=== PATIENT | female | born 1980 ===

== ENCOUNTER 2021-04-16 11:22 | Inpatient (IN) | payer OTHER ==
--- NOTE | 2021-04-16 11:05 | History and Physical Report ---
History of Present Illness Date of examination: 04/16/21 Chief complaint: Dysfunctional Uterine Bleeding with Severe Anemia History of present illness: Dysfunctional uterine bleeding refractory to medical management requiring urgent hysterectomy. Severe anemia despite transfusion of 5 units pRBC;s with current Hb 6.2 and 2 units PRBC's to be transfused stat in OR. 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) Family/Genetic History: none Social history: no significant social history Medications and Allergies Allergies Allergy/AdvReac Type Severity Reaction Status Date / Time No Known Allergies Allergy Unverified 04/09/21 12:24 Home Medications Medication Instructions Recorded Confirmed Last Taken Type Ibuprofen 600 mg PO PRN 04/09/21 04/16/21 04/15/21 History medroxyPROGESTERone ACETATE 150 mg IM [id number] 04/09/21 04/09/21 Unknown History [Medroxyprogesterone Acetate] Review of Systems All systems: negative (vaginal bleeding) - Physical Exam Breasts: Positive: deferred Cardiovascular: Regular rate Lungs: Positive: Clear to auscultation Abdomen: Positive: normal appearance, soft, normal bowel sounds Genitourinary (Female): Positive: normal external genitalia, normal perenium Vagina: Positive: normal moisture Uterus: Positive: enlarged (13Weeks size) Anus/Rectum: Positive: normal perianal skin Extremities: Positive: normal Deep Tendon Reflex Grade: Normal +2 Results Result Diagrams: 04/16/21 12:00 All other labs normal. 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
[~2021-04-16 11:22] MED LIST: SODIUM CHLORIDE 0.9% 100 ML IVPB IV ONE; SODIUM CHLORIDE 0.9% IRR 1,500 ML BOTTLE IR ONE; VASOPRESSIN 20 UNIT/1 ML INJ IV ONE
[2021-04-16] MEDS ORDERED: METHYLENE BLUE 50 MG/10 ML AMP ONE (11:52)
[2021-04-16] MEDS ORDERED: BUPIVACAINE/PF (0.25%) 2.5 MG/ML 30 ML VIAL INFILTRATI ONE ×2 (11:52→13:18)
[2021-04-16] MEDS ORDERED: ceFAZolin/STERILE WATER 2 GM/20 ML SYRINGE IV NR (12:00)
[2021-04-16] MEDS ORDERED: VASOPRESSIN 20 UNIT/1 ML INJ ONE (12:01)
[2021-04-16] MEDS: LACTATED RINGERS 1,000 ML IV SCH ×2 (12:01→22:58)
[2021-04-16] MEDS ORDERED: SODIUM CHLORIDE 0.9% 0 ML ONE (12:01)
[2021-04-16] MEDS ORDERED: SODIUM CHLORIDE 0.9% 100 ML ONE (12:03)
[2021-04-16] MEDS ORDERED: MIDAZOLAM 2 MG/2 ML INJ ONE (12:15)
--- NOTE | 2021-04-16 12:18 | Anesthesia Day of Surgery ---
Anesthesia Day of Surgery - Day of Surgery Patient Examined: Yes Patient H&P Reviewed: Yes Patient is NPO: Yes
[2021-04-16] MEDS ORDERED: HYDROmorphone 1 MG/1 ML INJ ONE (12:19)
[2021-04-16] MEDS ORDERED: propofoL 200 MG/20 ML VIAL IV ONE (12:19)
[2021-04-16] MEDS ORDERED: LIDOCAINE MPF (2%) 20 MG/1 ML VIAL 5 ML ONE (12:19)
[2021-04-16 12:20] LABS: Basophils % (Auto) 0.5 % (0.0-1.8); Eosinophils # (Auto) 0.1 K/mm3 (0.0-0.4); Eosinophils % (Auto) 0.7 % (0.0-4.3); Hemoglobin 6.4 gm/dl (10.1-14.3); Lymphocytes # (Auto) 2.1 K/mm3 (1.2-5.4); Lymphocytes % (Auto) 25.2 % (13.4-35.0); Mean Corpuscular HGB Conc 34 % (30-34); Mean Corpuscular Volume 81 fl (79-97); Monocytes # (Auto) 0.4 K/mm3 (0.0-0.8); Monocytes % (Auto) 4.8 % (0.0-7.3); Platelet Count 237 K/mm3 (140-440); Red Blood Count 2.36 M/mm3 (3.65-5.03); Red Cell Distribution Width 17.9 % (13.2-15.2)
[2021-04-16] MEDS ORDERED: ONDANSETRON 4 MG/2 ML INJ IV PRN ×2 (12:20→14:57)
[2021-04-16] MEDS ORDERED: HYDROmorphone 1 MG/1 ML INJ IV PRN (12:20)
[2021-04-16] MEDS ORDERED: SODIUM CHLORIDE 0.9% 500 ML 500 ML IV NR (12:21)
[2021-04-16] MEDS ORDERED: ROCURONIUM 50 MG/5 ML INJ IV ONE ×2 (12:21→15:19)
[2021-04-16 12:24] LABS: Hematocrit 19.1 % (30.3-42.9)
[2021-04-16] MEDS ORDERED: VASOPRESSIN 20 UNIT/1 ML INJ IV ONE (12:51)
[2021-04-16] MEDS ORDERED: SODIUM CHLORIDE 0.9% IRR 1,500 ML BOTTLE IR ONE (12:51)
[2021-04-16] MEDS ORDERED: SODIUM CHLORIDE 0.9% 100 ML IVPB IV ONE (12:53)
[2021-04-16] MEDS ORDERED: dexAMETHasone 20 MG/5 ML VIAL ONE (12:56)
[2021-04-16] MEDS ORDERED: ONDANSETRON 4 MG/2 ML INJ ONE (12:57)
[2021-04-16] MEDS ORDERED: NEOSTIGMINE 10MG/10 ML INJ MDV ONE (14:37)
[2021-04-16] MEDS ORDERED: GLYCOPYRROLATE 0.4 MG/2 ML INJ ONE (14:37)
[2021-04-16] MEDS ORDERED: PROMETHAZINE 25 MG TAB PO PRN (14:57)
[2021-04-16] MEDS ORDERED: diphenhydrAMINE 25 MG CAP PO PRN (14:57)
--- NOTE | 2021-04-16 14:57 | Post Operative Note ---
Date of procedure: 04/16/21 Pre-op diagnosis: dysfunctional uterine bleeding, uterine fbibroids,severe anemia Post-op diagnosis: same Findings: enlarged uterus Procedure: Operative laparoscopy converted to laparotomy with total abdominal hysterectomy Anesthesia: ANTHONY Surgeon: ALUREN FRAGA Estimated blood loss: other (350ml) Specimen disposition: to lab Condition: stable Disposition: PACU
--- NOTE | 2021-04-16 14:59 | Post Anesthesia Evaluation ---
- Post Anesthesia Evaluation Patient Participated: Yes Airway Patent: Yes Stable Respiratory Function: Yes Nausea/Vomiting: No Temp > 96.8F: Yes Pain Manageable: Yes Adequeate Hydration: Yes Anesthesia Complications: No Block Receding Appropriately: Not Applicable Patient on Ventilator: No
[2021-04-16] MEDS: HYDROmorphone 1 MG/1 ML INJ IV PRN ×4 (15:20→15:50)
[2021-04-16] MEDS ORDERED: SODIUM CHLORIDE 0.9% 1000 ML 1,000 ML ONE (15:20)
[2021-04-16] MEDS ORDERED: PROMETHAZINE 25 MG RECT SUPP PR PRN (15:57)
--- NOTE | 2021-04-16 16:09 | Operative Report ---
Operative Report Operative Report: Preoperative diagnosis: Symptomatic uterine fibroids with dysfunctional uterine bleeding and severe anemia Postoperative diagnosis: Same Procedure: Operative laparoscopy converted to laparotomy secondary to poor visual access to the large vessels, total abdominal hysterectomy Complications: Enlarged uterus with inability to safely complete laparoscopy given patient's severe anemia Surgeon: Dr. Yeni Saha Assist: Dr. Carmen moore Anesthesia: GETA IV fluids: 1 L crystalloid, 2 units PRBCs Drains: Sanchez to gravity Urine output: 100 ml clear Procedure: Patient was counseled in PACU about risk benefits possible complications alternatives to hysterectomy. Her hemoglobin is noted to be 6.4 and a couple 2 units of PRBCs to be transfused intraoperatively. She was then taken back to the operating room where she received excellent general endotracheal anesthesia. She was prepped and draped in a sterile fashion after being placed in the dorsal lithotomy position. A timeout was verified. A speculum was placed in the vaginal vault and the cervix grasped with a single-tooth tenaculum. A uter ine manipulator was placed without complication.. Attention turned to the abdomen which was insufflated with CO2 gas using the veress needle. A 10 mm trocar was then introduced into the abdomen atraumatically. Correct placement was confirmed with laparoscope. Two lateral ports were then placed in the usual fashion without complication. The uterus was noted to be grossly enlarged. An attempt was made to take down the utero-ovarian ligaments and round ligaments bilaterally with the LigaSure. Given inadequate access to the uterine vessels the decision was made to then convert to open laparotomy. A Pfannenstiel skin incision was made down to the underlying fascia, the fascia was incised in the midline and the fascial incision was extended inferiorly and superiorly sharply. Abdomen was then entered bluntly in the midline, and the bowel packed with two Raytek. An O'Murali-O'Marie retractor was in place without complication the uterus was then grasped and delivered outside the Pfannenstiel incision. Using the LigaSure the uterine arteries were suture-ligated bilaterally as were the cardinal and uterosacral ligaments. The vagina was then cross-clamped with curved Carla clamps, and the uterus removed with the Micah scissors. The vaginal cuff was closed with multiple [id number] sutures of 0 Vicryl. All pedicles were noted to be hemostatic. The abdomen was irrigated with warm normal saline. The O'Murali-O'Marie retractor in both Raytek were removed from the abdomen. The peritoneum was closed with 3-0 Vicryl and the fascia closed with 0 Vicryl in a running fashion. Subcuticular sutures were placed of 0 Vicryl. Monocryl was used on the skin and a pressure dressing applied. All three trocar ports were closed with 0 Vicryl on the fascia and Monocryl at the skin. Appropriate dressings were applied. The Sanchez catheter was left in the bladder at the completion of the procedure. Patient remained hemodynamically stable throughout. Her was notified in the operating room of her status. She will recover in PACU and be admitted for routine postoperative care. All sponge needle and instrument counts are correct x2. EBL 350 mL. Dorina Saha MD
[2021-04-16] MEDS: HYDROcodone/ACETAMINOPHEN 5-325 MG TAB PO PRN ×2 (16:59→23:50)
[2021-04-16] MEDS: IBUPROFEN 600 MG TAB PO SCH (20:59)
[2021-04-17] MEDS: MORPHINE 2 MG/1 ML INJ IV PRN ×2 (01:25→10:33)
[2021-04-17 03:41] LABS: Hematocrit 22.7 % (30.3-42.9); Hemoglobin 7.4 gm/dl (10.1-14.3)
[2021-04-17] MEDS: IBUPROFEN 600 MG TAB PO SCH ×4 (04:59→20:45)
[2021-04-17] MEDS ORDERED: SODIUM CHLORIDE 0.9% 500 ML IVPB IV SCH (08:00)
[2021-04-17] MEDS: HYDROcodone/ACETAMINOPHEN 5-325 MG TAB PO PRN ×2 (08:42→19:07)
--- NOTE | 2021-04-17 16:01 | Progress Note ---
Assessment and Plan DUB, severe anemia, uterine fibroids SP ELIDA POD#1 Plan: continue routine postop care advance diet encourage ambulation transfuse to Hb>8 stable-continue to monitor closely Dorina Saha MD Subjective - Subjective Date of service: 04/17/21 Interval history: Dysfunctional uterine bleeding refractory to medical management requiring urgent hysterectomy. Severe anemia despite transfusion of 5 units pRBC;s with current Hb 6.2 and 2 units PRBC's to be transfused stat in OR. Patient reports: appetite normal, voiding normally, pain well controlled, ambulating normally Objective - Vital Signs Latest vital signs: Vital Signs Temp Pulse Resp BP BP Pulse Ox 04/17/21 10:49 98.4 F 76 19 113/50 96 04/17/21 10:30 98.4 F 73 19 111/50 97 04/17/21 10:06 98.2 F 73 19 103/47 97 04/17/21 09:24 98.2 F 70 19 107/45 97 04/17/21 08:43 98.2 F 75 19 129/53 94 04/17/21 08:15 98.2 F 74 19 111/50 95 04/17/21 08:00 97.6 F 86 18 115/63 95 04/17/21 05:02 98.9 F 77 18 113/56 96 04/17/21 04:59 20 04/17/21 01:25 18 04/17/21 00:56 98.2 F 66 18 115/56 99 04/16/21 23:50 20 04/16/21 20:59 20 04/16/21 20:45 97.9 F 73 20 129/77 98 04/16/21 18:00 97.4 F L 72 20 109/61 97 04/16/21 17:00 69 20 111/46 98 04/16/21 16:40 97.5 F L 75 14 111/46 98 04/16/21 16:25 68 17 110/68 97 04/16/21 16:20 16 04/16/21 16:10 97.1 F L 69 15 115/59 97 04/16/21 16:00 16 Intake and Output 04/16/21 04/17/21 04/17/21 23:59 07:59 15:59 Intake Total 1240 100 500 Output Total 750 450 350 Balance 490 -350 150 Intake: IV 1000 Lactated Ringers 1,000 ml 1000 @ 100 mls/hr IV DIRECT BRADLEY Rx#:[id number] Oral 120 100 300 Intake, Free Water 120 200 Blood Product 0 Leukoreduced Red Blood 0 Cells Unit [id number] Output: Urine 750 450 350 Indwelling Catheter 450 450 350 Uretheral (Sanchez) 225 Other: Total, Intake Amount 120 100 200 Total, Output Amount 450 50 200 Voiding Method Indwelling Catheter Toilet # Voids Indwelling Catheter 1 Weight 88.451 kg Patient Weight 04/17/21 23:59 Weight 88.451 kg - Exam Breasts: Present: deferred Cardiovascular: Present: Regular rate Lungs: Present: Clear to auscultation Abdomen: Present: normal bowel sounds Extremities: Present: normal Incision: Present: normal, dry, intact, dressed (wound dressing removed) - Labs Labs: Abnormal lab results 04/16/21 04/17/21 Range/Units 12:00 03:04 Hgb 7.4 L (10.1-14.3) gm/dl Hct 22.7 L (30.3-42.9) % Crossmatch See Detail
[2021-04-17] MEDS: MAGNESIUM HYDROXIDE (MOM) ORAL LIQD UDC PO PRN (20:47)
[2021-04-18 03:41] LABS: Hematocrit 25.8 % (30.3-42.9); Hemoglobin 8.4 gm/dl (10.1-14.3)
[2021-04-18] MEDS: IBUPROFEN 600 MG TAB PO SCH (04:29)
--- NOTE | 2021-04-18 07:25 | Progress Note ---
Assessment and Plan meets discharge criteria, doing well. ambulating afebrile tolerating PO +ve flatus no VB plan for d/c to home prn-continue routine postop care Dorina Saha MD Subjective - Subjective Date of service: 04/18/21 Interval history: Dysfunctional uterine bleeding refractory to medical management requiring urgent hysterectomy. Severe anemia despite transfusion of 5 units pRBC;s with current Hb 6.2 and 2 units PRBC's to be transfused stat in OR. Patient reports: appetite normal, voiding normally, pain well controlled, flatus, ambulating normally Objective - Vital Signs Latest vital signs: Vital Signs Temp Pulse Resp BP BP Pulse Ox 04/18/21 04:29 18 04/18/21 04:10 98.0 F 68 20 110/58 99 04/17/21 22:43 98.4 F 75 20 115/59 97 04/17/21 20:45 18 04/17/21 19:36 98.4 F 73 20 111/55 100 04/17/21 19:07 18 04/17/21 15:52 97.6 F 75 18 107/48 95 04/17/21 10:49 98.4 F 76 19 113/50 96 04/17/21 10:30 98.4 F 73 19 111/50 97 04/17/21 10:06 98.2 F 73 19 103/47 97 04/17/21 09:24 98.2 F 70 19 107/45 97 04/17/21 08:43 98.2 F 75 19 129/53 94 04/17/21 08:15 98.2 F 74 19 111/50 95 04/17/21 08:00 97.6 F 86 18 115/63 95 Intake and Output 04/17/21 04/17/21 04/18/21 15:59 23:59 07:59 Intake Total 500 420 Output Total 350 400 Balance 150 420 -400 Intake: Oral 300 320 Intake, Free Water 200 100 Blood Product 0 Leukoreduced Red Blood 0 Cells Unit [id number] Output: Urine 350 400 Indwelling Catheter 350 400 Other: Total, Intake Amount 200 120 Total, Output Amount 200 400 Voiding Method Toilet Toilet Toilet # Voids Indwelling Catheter 1 Weight 88.451 kg - Exam Breasts: Present: deferred Cardiovascular: Present: Regular rate Abdomen: Present: normal appearance, soft, normal bowel sounds Extremities: Present: normal Incision: Present: normal, dry, intact - Labs Labs: Abnormal lab results 04/16/21 04/18/21 Range/Units 12:00 03:33 Hgb 8.4 L (10.1-14.3) gm/dl Hct 25.8 L (30.3-42.9) % Crossmatch See Detail
--- NOTE | 2021-04-18 07:27 | Discharge Summary ---
Providers - Providers Date of Admission: 04/16/21 14:57 Date of discharge: 04/18/21 Attending physician: LAUREN FRAGA MD Primary care physician: WASTE REDUCTION COORDINATOR Hospitalization Reason for admission: other (dysfunctional uterine bleeding) Procedure: other (ELIDA) Condition at discharge: Stable Disposition: DC- TO HOME OR SELFCARE Plan - Discharge Medications Prescriptions: Ibuprofen [Motrin] 600 mg PO Q8H PRN #60 tablet PRN Reason: Pain oxyCODONE /ACETAMINOPHEN [Percocet 5/325] 1 tab PO Q6HR PRN #20 tablet PRN Reason: Pain - Provider Discharge Summary Activity: no sex for 6 weeks Additional instructions: [] Smoking cessation referral if applicable(refer to patient education folder for contact #) [] Refer to [facility] Booklet Call your doctor immediately for: * Fever > 100.5 * Heavy vaginal bleeding ( >1 pad per hour) * Severe persistent headache * Shortness of breath * Reddened, hot, painful area to leg or breast * Drainage or odor from incision. * Keep incision clean and dry at all times and follow doctor's instructions regarding bathing/showering - Follow up plan Follow up: PRIMARY CAREMD [Primary Care Provider] - 14 Days
[2021-04-18 08:42] VITALS: BP 119/69
[2021-04-18] MEDS: HYDROcodone/ACETAMINOPHEN 5-325 MG TAB PO PRN (08:49)
[2021-04-18] MEDS: MAGNESIUM HYDROXIDE (MOM) ORAL LIQD UDC PO PRN (08:49)
== END 2021-04-18 09:12 | disposition home or self-care (01) | DRG 743 ==
LOC: OR 11:22 → OB 14:57
PROVIDERS: ADMIT Obstetrics & Gynecology; ATTEND Obstetrics & Gynecology
PROC: 0UT90ZZ Resection of Uterus, Open Approach (ICD-10-PCS; principal; 2021-04-16)
PROC: 0UJD4ZZ Inspection of Uterus and Cervix, Percutaneous Endoscopic Approach (ICD-10-PCS; 2021-04-16)
PROC: 30233N1 Transfusion of Nonautologous Red Blood Cells into Peripheral Vein, Percutaneous Approach (ICD-10-PCS; 2021-04-16)
DX: N93.8 Other specified abnormal uterine and vaginal bleeding (principal); D25.9 Leiomyoma of uterus, unspecified; D64.9 Anemia, unspecified; Z20.822 Contact with and (suspected) exposure to COVID-19; Z53.31 Laparoscopic surgical procedure converted to open procedure; D50.0 Iron deficiency anemia secondary to blood loss (chronic)
CPT/HCPCS: 36415; 85014; 85018; 85025; 86850; 86900; 86901; 86920; G0378; J0690; J1100; J1170; J2250; J2270; J2405; J2704; J2710; J7030; J7040; J7120; P9016; Q9968; U0003